=== PATIENT | male | born 1950 | race Caucasian/White ===

== ENCOUNTER 2025-01-09 12:52 | Emergency (ER) | payer MEDICARE, MEDICAID, SELFPAY ==
[2025-01-09 13:45] VITALS: BP 113/79; PULSE 98; RESP 18; TEMP 37; O2SAT 96
[2025-01-09] MEDS: FAMOTIDINE 20 MG TABLET 40 MG PO (14:07)
--- NOTE | 2025-01-09 14:11 | EDNOTE_ITS ---
<Statement entered by Renetta Florian MD - 01/16/25 14:33> As co-signing physician, I was present and available for consult prn. I concur with the plan and care as documented by the midlevel provider. ED Allergic Reaction RME/HPI General Chief complaint: Allergic Reaction Stated complaint: BEE STING R) UPPER LIP Time Seen by Provider: 01/09/25 13:42 Arrival date/time: 01/09/25 12:52 This is a 74-year-old male that comes into the emergency room with complaints of bee sting to the right side of his face/cheek. Patient states that happened approximately 2 to 3 hours prior to arrival. Patient thinks he is allergic to bees. Related Data Home Medications ?Medication ?Instructions ?Recorded ?Confirmed amitriptyline 25 mg tablet 25 mg PO QDAY 10/26/2010/15 omeprazole 10 mg capsule,delayed 10 mg PO QDAY 10/26/20 release Previous Rx's ?Medication ?Instructions ?Recorded diphenhydramine HCl 50 mg capsule 50 mg PO TID PRN all ergic reaction 01/09/25 #20 caps famotidine 20 mg tablet 20 mg PO BID #20 tabs prednisone 20 mg tablet 20 mg PO QDAY #5 tabs Allergies Allergy/AdvReac Type Severity Reaction Status Date / Time bee venom protein (honey bee) Allergy Intermediate Swelling Verified 01/09/25 12:56 of Lip/Tongue/Throat Review of Systems Review of Systems Systems Reviewed: All systems reviewed, normal except as documented Past Medical History Past Medical History ENDOCRINE: Negative Diabetes Mellitus Type 1 or Diabetes Mellitus Type 2 Surgical History OTHER SURGICAL HX: none Social History SMOKING STATUS: Current some day smoker SUBSTANCE USE: does not use ALCOHOL: Never ED Exam Narrative Physical exam: VITAL SIGNS: Reviewed. GENERAL APPEARANCE: Alert and interactive, follows commands, no acute distress, HEAD AND FACE: Non-traumatic. ENT: PERRL, conjuctiva pink and clear, eyelid no trauma, Mucous membrane moist. Mild edema to the right side of upper lip and right sided facial swelling mild NECK: Supple, nontender, no nuchal rigidity. CHEST: No tenderness, no crepitus, no paradoxical movement, no retractions. LUNGS: Clear, well ventilated, symmetric, no rales, no wheezing, no rhonchi, no stridor, good breath sounds bilaterally. HEART: Regular rate, regular rhythm, no murmur, no gallops. ABDOMEN: Soft, nondistended, no guarding, nontender, NEUROLOGICAL: Gross motor function intact sensory function intact, Appropriate for age. MUSCULOSKELETAL: low back nontender, full range of motion. EXTREMITIES: No redness no swelling no skin breakdown on bilateral foot and leg. Distal neurovascular status intact bilateral foot SKIN: Color pink, dry Course Quality Measures none Orders Category Date Time Status DiphenhydrAMINE INJ [Benadryl Inj] Med 01/09/25 14:00 Discontinued 50 mg IM X1 ONE Famotidine [Pepcid] Med 01/09/25 14:00 Discontinued 40 mg PO X1 ONE predniSONE Med 01/09/25 14:40 Discontinued 40 mg PO X1 ONE Vital Signs Vital signs: Vital Signs Temperature 98.6 F 01/09/25 13:45 Pulse Rate 98 01/09/25 13:45 Respiratory Rate 18 01/09/25 13:45 Blood Pressure 113/79 01/09/25 13:45 Pulse Oximetry (%) 96 01/09/25 13:45 Oxygen Delivery Method Room Air 01/09/25 13:45 Allergic Reaction MDM Narrative MDM Narrative:: Patient given Benadryl and Pepcid. May consider epi if no improvement in patient's symptoms. Patient did feel better after Pepcid and Benadryl. I did give patient a dose of steroids. Patient states that he had a bad reaction last time he was stung. I will send patient home with steroids as well. Patient told to come back to emergency room if symptoms change or worsen. Patient verbalized understanding. Dragon dictation: Although this document has been carefully reviewed, there may still be some phonetic and other typographical errors. These errors are purely grammatical due to imperfections in the software program and should not be construed in any way to compromise the substance of the patient's medical care during this visit. Patient data External records reviewed:: [facility] previous records Clinical information provided by:: patient Social determinants that could affect healthcare access:: none Patient has the following chronic illnesses:: None How is presenting disease/condition affected by chronic disease/condition?: no chronic disease Evaluation data The following diagnostics were reviewed and interpreted by me:: other (specify) (None) Lab and/or radiology exams considered but not ordered:: None Interpretation Summary: See note Medications / Prescriptions Medications or Prescriptions considered but not ordered:: None Medication administrations:: Medication Administration History Discontinued Medications Diphenhydramine HCl (Diphenhydramine Inj 50 Mg/Ml Vial) 50 mg IM X1 ONE Stop: 01/09/25 14:01 Last Admin: 01/09/25 14:08 Dose: 50 mg Documented By: DEVYN Famotidine (Famotidine 20 Mg Tablet) 40 mg PO X1 ONE Stop: 01/09/25 14:01 Last Admin: 01/09/25 14:07 Dose: 40 mg Documented By: DEVYN Prednisone (Prednisone 20 Mg Tablet) 40 mg PO X1 ONE Stop: 01/09/25 14:41 Last Admin: 01/09/25 14:46 Dose: 40 mg Documented By: DEVYN DO Consultations Consultation(s) initiated? (list below): No Diagnosis Differential Diagnosis allergic reaction: anaphylaxis, allergic reaction, angioedema, contact dermatitis, adverse reaction to drug and urticaria Most likely diagnosis given after review of the tests above:: Allergic reaction to bee sting Admission Indicated Admission indicated?: not indicated Admission Request Was there a request for admission?: No Disposition Plan Disposition Plan: Discharge Discharge Attestation Discharge Attestation: The patient and all family members were given an opportunity to ask questions and understood the discharge instructions. Discharge instructions specifically effects, indications for sooner follow up or return to the emergency department, and the expected course of current diagnosis. Patient condition: Stable Discharge Plan Plan Patient Disposition: HOME (Self Care) Patient condition on transfer: Stable Prescriptions/Referrals Prescriptions/Med Rec: New diphenhydramine HCl 50 mg capsule 50 mg PO TID PRN (Reason: allergic reaction) Qty: 20 0RF famotidine 20 mg tablet 20 mg PO BID Qty: 20 0RF prednisone 20 mg tablet 20 mg PO QDAY Qty: 5 0RF No Action amitriptyline 25 mg Tablet 25 mg PO QDAY omeprazole 10 mg Capsule,Delayed Release(Dr/Ec) 10 mg PO QDAY Problem List Clinical Impression: Bee sting, Allergic reaction Patient/Caregiver Discharge Instructions Discharge Activity: activity as tolerated Education Materials: ED Medicine Reaction: Allergic Additional Instructions: Najma un jacob con layne medico de cabecera en las proximas 24-48 horas. Regrese a la johny de emergencias si hay evidencia de que los signos o sintomas empeoran. Print Language: Jamaican Stand Alone Forms: Lu Award Info., Patient Portal Info Letter PA/ACETYLENE CUTTER Supervising Physician PA/ACETYLENE CUTTER Supervising Physician: jj
== END 2025-01-09 14:10 | disposition home or self-care (01) ==
LOC: SERX 14:52
PROVIDERS: Emergency Provider Emergency Medicine; PCP Family Medicine
DX: T63.441A Toxic effect of venom of bees, accidental (unintentional), initial encounter (principal)
CPT/HCPCS: 99281; J1200; J7512; A9270